=== PATIENT | female | born 1995 | race Caucasian/White ===

== ENCOUNTER 2018-10-23 15:45 | Emergency (ER) | payer MEDICAID, SELFPAY ==
[2018-10-23 15:50] VITALS: BP 146/69; PULSE 99; TEMP 37.4; O2SAT 97
--- NOTE | 2018-10-23 16:08 | NUR.NOTE ---
Nursing Note: MD Bañuelos is at the bedside.
--- NOTE | 2018-10-23 16:19 | W.ED.GENAD ---
Discharge Plan Disposition Patient Disposition: [facility] Condition: Serious Discharge Details Chief Complaint: Chest Pain Clinical Impression: Chest pain, Tachycardia Primary Care Provider: None,None ED Provider: Riccardo Bañuelos Home Meds and New Rx's Prescriptions: No Action No Known Home Meds RF: 0 Discharge Data Discharge Date/Time-TO BE ENTERED AT DEPARTURE: 10/23/18 19:56 Medical Decision Making 16:25 -- 23yo f with morbid obesity here with chest pain intermittent over the past 2 days. Patient is tachycardic. No respiratory distress. ECG reviewed and interpreted by me: sinus tachycardia 106, nl axis, short [place] 116. Moderate wells criteria. Concern for PE vs less likely ACS. Consider PTX. Plan for CT chest. Unfortunately, patient is over weight limitation of CT at [facility]. Will obtain initial labs including troponin and cxr. Plan for transfer to center that has CT capability for her weight. 17:15 -- cxr interpreted by radiology: No acute findings. No pneumothorax. Labs reviewed and initial troponin negative. I called [facility] transfer center to request emergent ED to ED transfer. Awaiting return call. 17:21 -- I was informed by staff that [facility] may have CT able to accomadate patient's weight. I called [facility] and spoke to production technologist who notes CT capable of 550lbs. Spoke with Dr. Neves to request transfer ED to ED. He will return call. 17:53 -- Spoke with Dr. Welch at [facility] - unable to accept patient as no inpatient beds available. 17:58 -- Spoke with Dr. Roach at [facility] who is looking into hospital capability and will call back. 18:05 -- Spoke with Dr. Roach who was agreeable to accepting patient but was informed by phosphoric acid supervisor that they could not accept transfer. Plan to transfer to [facility]. Call to [facility] transfer center to request ED to ED transfer. Awaiting return call. Patient reassessed and remains tachycardic. BP normal. Saturating well and no respiratory distress. 18:20 -- Spoke with Dr. Zepeda, [facility] ED, who will not accept the patient in ED to ED transfer because of lacking inpatient bed capability. continuous improvement director of transfer center was requested and not immediately available. Awaiting call back. 18:35 -- Call to [facility] transfer center to request transfer. Patient accepted by Dr. Connelly. Patient consented to transfer and appreciative of care. HPI General Mode of arrival: ambulatory. Date/Time Provider Initiated Documentation: 10/23/18 16:04. Limitations to Documentation: no limitations. Information obtained by: patient. HPI Narrative: 23yo f presents today with chief complaint of chest pain. Patient states that she has experienced intermittent chest discomfort over the past 2 days. Pain is localized to anterior upper chest and left shoulder. Also notes come intermittent sharp left lateral rib pain. Painful episodes occur about 2x per hour and last a few minutes. No modifiers. Occur at rest. Pain is mild in severity. No associated shortness or breath. No palpitations. No calf pain. No syncope or dizziness. No recent immobuility, traval or surgery. No history of cardiac disease or blood clots. Patient is obese. Related Data Home Medications Medication Instructions Recorded Confirmed Unknown [No Known Home Meds] 06/01/14 06/01/14 Allergies Allergy/AdvReac Type Severity Reaction Status Date / Time No Known Allergies Allergy Unverified 06/01/14 22:41 General Stated Complaint: Chest Pain LILIANA: 2 Review of Systems Review of Systems All systems reviewed & are unremarkable except as noted in HPI and below Cardiovascular Reports as per HPI Respiratory Reports as per HPI and Denies cough Gastrointestinal Denies abdominal pain PFSH Medical History Asthma (Chronic) Social History Smoking/Tobacco Use Status: Never Exam Const General: cooperative and no acute distress Nutritional Appearance: obese Orientation: alert and awake HENMT Head: normocephalic and atraumatic Mouth: moist mucous membranes Eyes Conjunctivae: normal conjunctivae Sclera: normal sclerae EOM: EOM intact bilaterally Neck Neck: trachea midline and supple Resp Auscultation: clear to auscultation bilaterally, no rales, no rhonchi and no wheezes Cardio Jugular venous pressure: no JVD Rate: tachycardic Rhythm: regular rhythm Heart Sounds: no murmurs GI Palpation: soft, not firm, no guarding, no masses, not rigid and nontender Skin General skin exam: no rashes or lesions noted Neuro General: alert, awake, oriented x3 and tone normal Extrem General: no edema Psych Appearance: grossly normal Mental Status: mental status grossly normal Speech and Movement: speech and movement normal Course Vital Signs Temperature 37.4 C 10/23/18 15:50 Pulse 99 H 01/14/19 15:50 Blood Pressure 146/69 H 10/23/18 15:50 Pulse Oximetry 97 10/23/18 15:50 Temperature 37.4 C 10/23/18 15:50 Temperature Source Skin 10/23/18 15:50 Pulse 99 H 10/23/18 15:50 Blood Pressure 146/69 H 10/23/18 15:50 Blood Pressure Position Supine 10/23/18 15:50 Pulse Oximetry 97 10/23/18 15:50 Oxygen Delivery Method Room Air 10/23/18 15:50 Oxygen Flow Rate 0 10/23/18 15:50 Pain Level 3 10/23/18 15:50
--- NOTE | 2018-10-23 16:27 | ED.GENADUL_ITS ---
Discharge Plan Disposition Patient Disposition: [facility] Condition: Serious Discharge Details Chief Complaint: Chest Pain Clinical Impression: Chest pain, Tachycardia Primary Care Provider: None,None ED Provider: Riccardo Bañuelos Home Meds and New Rx's Prescriptions: No Action No Known Home Meds RF: 0 Discharge Data Discharge Date/Time-TO BE ENTERED AT DEPARTURE: 10/23/18 19:56 Medical Decision Making 16:25 -- 23yo f with morbid obesity here with chest pain intermittent over the past 2 days. Patient is tachycardic. No respiratory distress. ECG reviewed and interpreted by me: sinus tachycardia 106, nl axis, short [place] 116. Moderate wells criteria. Concern for PE vs less likely ACS. Consider PTX. Plan for CT chest. Unfortunately, patient is over weight limitation of CT at [facility]. Will obtain initial labs including troponin and cxr. Plan for transfer to center that has CT capability for her weight. 17:15 -- cxr interpreted by radiology: No acute findings. No pneumothorax. Labs reviewed and initial troponin negative. I called [facility] transfer center to request emergent ED to ED transfer. Awaiting return call. 17:21 -- I was informed by staff that [facility] may have CT able to accomadate patient's weight. I called [facility] and spoke to mechatronics technologist who notes CT capable of [address]. Spoke with Dr. Neves to request transfer ED to ED. He will return call. 17:53 -- Spoke with Dr. Welch at [facility] - unable to accept patient as no inpatient beds available. 17:58 -- Spoke with Dr. Roach at [facility] who is looking into hospital capability and will call back. 18:05 -- Spoke with Dr. Roach who was agreeable to accepting patient but was informed by electrical tests supervisor that they could not accept transfer. Plan to transfer to [facility]. Call to [facility] transfer center to request ED to ED transfer. Awaiting return call. Patient reassessed and remains tachycardic. BP normal. Saturating well and no respiratory distress. 18:20 -- Spoke with Dr. Zepeda, [facility] ED, who will not accept the patient in ED to ED transfer because of lacking inpatient bed capability. director of mobile marketing of transfer center was requested and not immediately available. Awaiting call back. 18:35 -- Call to [facility] transfer center to request transfer. Patient accepted by Dr. Connelly. Patient consented to transfer and appreciative of care. HPI General Mode of arrival: ambulatory . Date/Time Provider Initiated Documentation: 10/23/18 16:04 . Limitations to Documentation: no limitations . Information obtained by: patient . HPI Narrative: 23yo f presents today with chief complaint of chest pain. Patient states that she has experienced intermittent chest discomfort over the past 2 days. Pain is localized to anterior upper chest and left shoulder. Also notes come intermittent sharp left lateral rib pain. Painful episodes occur about 2x per hour and last a few minutes. No modifiers. Occur at rest. Pain is mild in severity. No associated shortness or breath. No palpitations. No calf pain. No syncope or dizziness. No recent immobuility, traval or surgery. No history of cardiac disease or blood clots. Patient is obese. Related Data Home Medications Medication Instructions Recorded Confirmed Unknown [No Known Home Meds] 06/01/14 06/01/14 Allergies Allergy/AdvReac Type Severity Reaction Status Date / Time No Known Allergies Allergy Unverified 06/01/14 22:41 General Stated Complaint: Chest Pain LILIANA: 2 Review of Systems Review of Systems All systems reviewed & are unremarkable except as noted in HPI and below Cardiovascular Reports as per HPI Respiratory Reports as per HPI and Denies cough Gastrointestinal Denies abdominal pain PFSH Medical History Asthma (Chronic) Social History Smoking/Tobacco Use Status: Never Exam Const General: cooperative and no acute distress Nutritional Appearance: obese Orientation: alert and awake HENMT Head: normocephalic and atraumatic Mouth: moist mucous membranes Eyes Conjunctivae: normal conjunctivae Sclera: normal sclerae EOM: EOM intact bilaterally Neck Neck: trachea midline and supple Resp Auscultation: clear to auscultation bilaterally, no rales, no rhonchi and no wheezes Cardio Jugular venous pressure: no JVD Rate: tachycardic Rhythm: regular rhythm Heart Sounds: no murmurs GI Palpation: soft, not firm, no guarding, no masses, not rigid and nontender Skin General skin exam: no rashes or lesions noted Neuro General: alert, awake, oriented x3 and tone normal Extrem General: no edema Psych Appearance: grossly normal Mental Status: mental status grossly normal Speech and Movement: speech and movement normal Course Vital Signs Temperature 37.4 C 10/23/18 15:50 Pulse 99 H 01/14/19 15:50 Blood Pressure 146/69 H 10/23/18 15:50 Pulse Oximetry 97 10/23/18 15:50 Temperature 37.4 C 10/23/18 15:50 Temperature Source Skin 10/23/18 15:50 Pulse 99 H 10/23/18 15:50 Blood Pressure 146/69 H 10/23/18 15:50 Blood Pressure Position Supine 10/23/18 15:50 Pulse Oximetry 97 10/23/18 15:50 Oxygen Delivery Method Room Air 10/23/18 15:50 Oxygen Flow Rate 0 10/23/18 15:50 Pain Level 3 10/23/18 15:50
--- NOTE | 2018-10-23 16:27 | DI.RAD_ITS ---
SYMPTOM/DIAGNOSIS: CHEST PAIN PORTABLE AP CHEST: Comparison is made with 12/26/08. The exam is limited by the patient's body habitus. The heart size is within normal limits for projection. The lungs are grossly clear. IMPRESSION: Negative portable chest.
[2018-10-23 16:37] LABS: Abs Immature Grans 0.05 k/cumm (0.0-0.09); Absolute Basophil Count 0.02 k/cumm (0.0-0.2); Absolute Eosinophil Count 0.26 k/cumm (0.0-0.7); Absolute Lymphocyte Count 2.17 k/cumm (1.2-3.4); Absolute Monocyte Count 0.55 k/cumm (0.11-0.7); Absolute Neutrophil Count 7.75 k/cumm (1.2-6.7); Basophils % 0.2; Eosinophils % 2.4; HCT 42.9 % (36.0-46.0); HGB 13.6 g/dL (12.0-15.5); Immature Grans % 0.5; Lymphocytes % 20.1; Mean Corp. HGB Concentration 31.7 g/dL (32.0-36.0); Mean Corpuscular Hemoglobin 25.7 pg (27.0-33.0); Mean Corpuscular Volume 80.9 fL (80-95); Mean Platelet Volume 10.3 fL (8.0-11.0); Monocytes % 5.1; Neutrophils % 71.7; Platelet Count 335 x1000/uL (130-400); RBC Distribution Width 15.9 % (11.7-14.6)
[2018-10-23 16:53] LABS: ALT 21 U/L (12-78); AST 15 U/L (15-37); Albumin 3.4 g/dL (3.4-5.0); Alkaline Phosphatase 65 U/L (46-116); BUN 12 mg/dL (7-18); Bilirubin, Total 0.5 mg/dL (0.2-1.0); CREATININE 0.83 mg/dL (0.55-1.02); Calcium 9.3 mg/dL (8.5-10.1); Chloride 101 mmol/L (98-107); Glucose 93 mg/dL (70-100); Magnesium 1.9 mg/dL (1.8-2.4); Potassium 3.8 mmol/L (3.5-5.1); Sodium 137 mmol/L (136-145); Total Protein 8.2 g/dL (6.4-8.2)
[2018-10-23 17:00] LABS: Troponin I < 0.02 ng/mL (0.00-0.06)
--- NOTE | 2018-10-23 17:06 | DI.VRAD_ITS ---
EXAM: XR Chest, 1 View EXAM DATE/TIME: 10/23/2018 4:28 PM CLINICAL HISTORY: 23 years old, female; Pain; Chest pain; Left-sided chest pain; Patient HX: Chest pain left, 2 days, tachy TECHNIQUE: XR of the chest, 1 view. COMPARISON: No relevant prior studies available. FINDINGS: Lungs: Unremarkable. No consolidation. Pleural space: Unremarkable. No pleural effusion. No pneumothorax. Heart/Mediastinum: Unremarkable. No cardiomegaly. Bones/joints: Unremarkable. IMPRESSION: No acute findings. Dictated and Authenticated by: Nicolas Davison MD. Ordering:OFELIA Gu MD
[2018-10-23 17:51] VITALS: PULSE 98; RESP 18; O2SAT 99
[2018-10-23 18:00] VITALS: BP 169/94; PULSE 101; PULSE 97; RESP 24; O2SAT 98
[2018-10-23 18:01] VITALS: PULSE 103; RESP 16; O2SAT 98
[2018-10-23 18:10] VITALS: PULSE 105; RESP 17; O2SAT 96
--- NOTE | 2018-10-23 18:49 | NUR.NOTE ---
Nursing Note: Pt. is calm, in NAD, awaiting updated plan.
--- NOTE | 2018-10-23 19:01 | NUR.NOTE ---
Nursing Note: Report given to DONNA Rocha at [facility].
[2018-10-23] MEDS: Normal Saline 1,000 ML 125 ML IV (20:45)
[2018-10-24 02:48] VITALS: BP 169/94; PULSE 97; RESP 17; TEMP 37.4; O2SAT 96
--- NOTE | 2018-10-24 08:32 | PDOC.ERCMPRO ---
Care Management Progress Note 10/24-Dr. Taniya Bañuelos requested assistance with a PCP (patient does not have PCP, Dr. Call station engineer main line) f/u within one week. Referral faxed to [facility] this am.
--- NOTE | 2018-10-24 08:33 | CMPROGNOTE_ITS ---
Care Management Progress Note 10/24-Dr. Taniya Bañuelos requested assistance with a PCP (patient does not have PCP, Dr. Call oncology admin) f/u within one week. Referral faxed to [facility] this am.
== END 2018-10-23 19:56 ==
PROVIDERS: Emergency Provider Student in an Organized Health Care Education/Training Program
DX: R07.9 Chest pain, unspecified (principal); R00.0 Tachycardia, unspecified; E66.01 Morbid (severe) obesity due to excess calories; Z68.45 Body mass index [BMI] 70 or greater, adult
CPT/HCPCS: 36415; 80053; 81025; 93005; 96360; 96361; 99285; 71045; 83735; 84484; 85025; 93010

== ENCOUNTER 2019-04-03 15:12 | Emergency (ER) | payer MEDICAID, SELFPAY ==
--- NOTE | 2019-04-03 15:28 | NUR.NOTE ---
Nursing Note: pt states that she developed a sore throat 2 days ago. pt has had strep several times in the past and states that symptoms are similar
[2019-04-03 15:29] VITALS: BP 152/78; PULSE 128; RESP 17; TEMP 37.6; O2SAT 97
--- NOTE | 2019-04-03 15:31 | W.ED.GENAD ---
Discharge Plan Disposition Patient Disposition: HOME Condition: Stable Discharge Details Chief Complaint: Sorethroat Clinical Impression: Acute tonsillitis Primary Care Provider: Charlie Thompson ED Provider: Scotty Yusuf Home Meds and New Rx's Prescriptions: Continued ProAir HFA 90 mcg/actuation HFA aerosol inhaler 1 puff IH Q6H PRNRF: 0 diphenhydramine HCl [Allergy (diphenhydramine)] 25 mg capsule 25 mg PO Q4H PRNRF: 0 Discharge Instructions Instructions: Pharyngitis (ED) Additional Instructions: Your rapid strep test is negative but we will send it for strep culture for further testing. Continue to use [id number]-[id number] medications such as Tylenol, Motrin, and stay well-hydrated. Return to the emergency department for any new or significant worsening of symptoms otherwise follow-up with your primary care provider for reassessment if not improving over the next. Referrals: Charlie Thompson [Primary Care Provider] - (If not improving over the next week) Discharge Data Discharge Date/Time-TO BE ENTERED AT DEPARTURE: 04/03/19 16:08 Medical Decision Making Patient presenting to the emergency department chief complaint of sore throat. Patient states that she has had intermittent fever the for the past 2 days along with a sore throat that started at the same time. She does state history of strep throat with similar presentation. Patient denies any nasal congestion, cough, rash, abdominal pain nausea vomiting. Physical exam shows tonsillary hypertrophy, erythema, and exudates along with some anterior cervical lymphadenopathy, otherwise HEENT cardiac and respiratory exam are unremarkable. Plan to do rapid strep testing for consideration of streptococcal illness. Rapid strep testing is negative. Patient was educated on conservative management of her symptoms along with return precautions. Strep culture was ordered. Patient to follow-up with primary care provider if not improving in the next week. HPI General Mode of arrival: ambulatory. Date/Time Provider Initiated Documentation: 04/03/19 15:31. Limitations to Documentation: no limitations. Information obtained by: patient. History of Present Illness 23 year old F presents to the emergency department with the chief complaint of Sore throat, described as moderate, with intensity rated at 7. Quality is described as aching, and is localized to the mouth (Sore throat). Patient started experiencing this day(s) (2) and it has been constant. No relieving factors improve symptom(s), No exacerbating factors reported . Patient notes no other symptoms.. Patient did receive the following treatments prior to arrival, NSAID Related Data Home Medications Medication Instructions Recorded Confirmed albuterol sulfate HFA 90 1 puff IH Q6H PRN 11/01/18 11/01/18 mcg/actuation aerosol inhaler diphenhydramine 25 mg capsule 25 mg PO Q4H PRN 11/01/18 11/01/18 Allergies Allergy/AdvReac Type Severity Reaction Status Date / Time No Known Allergies Allergy Unverified 11/01/18 13:18 General LILIANA: 2 Review of Systems Constitutional Denies chills, Reports fever(s), Denies headache(s) and Reports malaise ENT Denies dysphagia, Denies otalgia, Denies headache(s), Denies hoarseness, Denies lip swelling, Denies nasal congestion, Reports odynophagia and Reports sore throat Cardiovascular Denies chest pain Respiratory Denies chest congestion and Denies cough Gastrointestinal Denies abdominal pain, Denies dysphagia, Denies nausea, Reports odynophagia and Denies vomiting Integumentary/Breasts Denies rash Neurologic Denies headache(s) Allergic/Immunologic Denies lip swelling [facility] Medical History Asthma (Chronic) Family History Mother Alcohol abuse Asthma Depression Father Alcohol abuse Brother Depression Cancer Brother Alcohol abuse Maternal Grandfather Alcohol abuse Bladder cancer Paternal Grandfather No problems noted. Maternal Grandmother Alcohol abuse Depression Lung cancer Paternal Grandmother No problems noted. Social History Smoking/Tobacco Use Status: Never Alcohol Intake: current Alcohol Intake frequency: a few times a month Alcohol type: beer and hard liquor Drug use: Never Substance use type: does not use Caregiver/Support person: No Household members: family Housing: apartment Pets and animals: Yes Pets and animals: cat(s) Sexually active: No Do you think of yourself as: straight/heterosexual Current gender identity: female Frequency: does not exercise Parvin/Anabaptism: Taoist Special parvin needs: No Seatbelt use: always Helmet use: Yes Do you feel safe at home: Yes Do you feel safe in your relationship?: Yes Exam Const General: cooperative, healthy appearing, comfortable, no acute distress and not ill appearing Orientation: alert, awake and oriented x3 HENMT Head: normal to inspection and normocephalic Ears: hearing grossly normal bilaterally, external ears normal, TM's normal bilaterally and mastoids normal General nose exam: external nose normal and nares normal Mouth: oral mucosae normal, lip normal, tongue normal, no audible dysphonia, no drooling and no trismus Throat: uvula midline and abnormal tonsil bilaterally erythema, exudates and hypertrophy 2+ Neck Neck: normal visual inspection, full ROM, no meningeal signs and lymphadenopathy (Anterior cervical) Resp Effort & Inspection: normal respiratory effort, able to speak in complete sentences and no stridor Auscultation: clear to auscultation bilaterally Cardio Rate: regular rate Rhythm: regular rhythm Heart Sounds: S1 normal and S2 normal Skin General skin exam: no rashes or lesions noted
--- NOTE | 2019-04-03 15:35 | ED.GENADUL_ITS ---
Discharge Plan Disposition Patient Disposition: HOME Condition: Stable Discharge Details Chief Complaint: Sorethroat Clinical Impression: Acute tonsillitis Primary Care Provider: Charlie Thompson ED Provider: Scotty Yusuf Home Meds and New Rx's Prescriptions: Continued ProAir HFA 90 mcg/actuation HFA aerosol inhaler 1 puff IH Q6H PRNRF: 0 diphenhydramine HCl [Allergy (diphenhydramine)] 25 mg capsule 25 mg PO Q4H PRNRF: 0 Discharge Instructions Instructions: Pharyngitis (ED) Additional Instructions: Your rapid strep test is negative but we will send it for strep culture for further testing. Continue to use ekcl-aqu-zyteanb medications such as Tylenol, Motrin, and stay well-hydrated. Return to the emergency department for any new or significant worsening of symptoms otherwise follow-up with your primary care provider for reassessment if not improving over the next. Referrals: Charlie Thompson [Primary Care Provider] - (If not improving over the next week) Discharge Data Discharge Date/Time-TO BE ENTERED AT DEPARTURE: 04/03/19 16:08 Medical Decision Making Patient presenting to the emergency department chief complaint of sore throat. Patient states that she has had intermittent fever the for the past 2 days along with a sore throat that started at the same time. She does state history of strep throat with similar presentation. Patient denies any nasal congestion, cough, rash, abdominal pain nausea vomiting. Physical exam shows tonsillary hypertrophy, erythema, and exudates along with some anterior cervical lymphadenopathy, otherwise HEENT cardiac and respiratory exam are unremarkable. Plan to do rapid strep testing for consideration of streptococcal illness. Rapid strep testing is negative. Patient was educated on conservative management of her symptoms along with return precautions. Strep culture was ordered. Patient to follow-up with primary care provider if not improving in the next week. HPI General Mode of arrival: ambulatory . Date/Time Provider Initiated Documentation: 04/03/19 15:31 . Limitations to Documentation: no limitations . Information obtained by: patient . History of Present Illness 23 year old F presents to the emergency department with the chief complaint of Sore throat, described as moderate, with intensity rated at 7. Quality is described as aching, and is localized to the mouth (Sore throat). Patient started experiencing this day(s) (2) and it has been constant. No relieving factors improve symptom(s), No exacerbating factors reported . Patient notes no other symptoms.. Patient did receive the following treatments prior to arrival, NSAID Related Data Home Medications Medication Instructions Recorded Confirmed albuterol sulfate HFA 90 1 puff IH Q6H PRN 11/01/18 11/01/18 mcg/actuation aerosol inhaler diphenhydramine 25 mg capsule 25 mg PO Q4H PRN 11/01/18 11/01/18 Allergies Allergy/AdvReac Type Severity Reaction Status Date / Time No Known Allergies Allergy Unverified 11/01/18 13:18 General LILIANA: 2 Review of Systems Constitutional Denies chills, Reports fever(s), Denies headache(s) and Reports malaise ENT Denies dysphagia, Denies otalgia, Denies headache(s), Denies hoarseness, Denies lip swelling, Denies nasal congestion, Reports odynophagia and Reports sore throat Cardiovascular Denies chest pain Respiratory Denies chest congestion and Denies cough Gastrointestinal Denies abdominal pain, Denies dysphagia, Denies nausea, Reports odynophagia and Denies vomiting Integumentary/Breasts Denies rash Neurologic Denies headache(s) Allergic/Immunologic Denies lip swelling [facility] Medical History Asthma (Chronic) Family History Mother Alcohol abuse Asthma Depression Father Alcohol abuse Brother Depression Cancer Brother Alcohol abuse Maternal Grandfather Alcohol abuse Bladder cancer Paternal Grandfather No problems noted. Maternal Grandmother Alcohol abuse Depression Lung cancer Paternal Grandmother No problems noted. Social History Smoking/Tobacco Use Status: Never Alcohol Intake: current Alcohol Intake frequency: a few times a month Alcohol type: beer and hard liquor Drug use: Never Substance use type: does not use Caregiver/Support person: No Household members: family Housing: apartment Pets and animals: Yes Pets and animals: cat(s) Sexually active: No Do you think of yourself as: straight/heterosexual Current gender identity: female Frequency: does not exercise Parvin/Yarsani: [employer] Special parvin needs: No Seatbelt use: always Helmet use: Yes Do you feel safe at home: Yes Do you feel safe in your relationship?: Yes Exam Const General: cooperative, healthy appearing, comfortable, no acute distress and not ill appearing Orientation: alert, awake and oriented x3 HENMT Head: normal to inspection and normocephalic Ears: hearing grossly normal bilaterally, external ears normal, TM's normal bilaterally and mastoids normal General nose exam: external nose normal and nares normal Mouth: oral mucosae normal, lip normal, tongue normal, no audible dysphonia, no drooling and no trismus Throat: uvula midline and abnormal tonsil bilaterally erythema, exudates and hypertrophy 2+ Neck Neck: normal visual inspection, full ROM, no meningeal signs and lymphadenopathy (Anterior cervical) Resp Effort & Inspection: normal respiratory effort, able to speak in complete sentences and no stridor Auscultation: clear to auscultation bilaterally Cardio Rate: regular rate Rhythm: regular rhythm Heart Sounds: S1 normal and S2 normal Skin General skin exam: no rashes or lesions noted
[2019-04-03 16:06] VITALS: BP 152/78; PULSE 128; RESP 17; TEMP 37.6; O2SAT 97
== END 2019-04-03 16:08 | disposition home or self-care (01) ==
PROVIDERS: Emergency Provider Nurse Practitioner Family; PCP Family Medicine
DX: J03.00 Acute streptococcal tonsillitis, unspecified (principal)
CPT/HCPCS: 87880; 99282; 87081

== ENCOUNTER 2025-05-24 17:19 | Outpatient (REF) | payer MEDICAID, SELFPAY ==
[2025-05-24 21:12] LABS: Abs Immature Grans 0.09 10^3/uL (0.0-0.06); HCT 45.1 % (36.0-46.0); HGB 14.2 g/dL (11.2-15.7); Immature Grans % 0.8 %; MCH 25.7 pg (27.0-33.0); MCHC 31.5 % (32.0-36.0); MCV 82 fL (80-95); MPV 10.7 fL (8.0-11.0); Platelet Count 317 10^3/uL (130-400); RBC 5.53 10^6/uL (3.93-5.22); RDW 15.9 % (11.7-14.6); RDW-SD 47.1 fL; WBC 11.66 10^3/uL (4.4-10.8)
[2025-05-24 21:33] LABS: ALT 21 U/L (14-59); AST 12 U/L (15-37); Albumin 3.4 g/dL (3.4-5.0); Alkaline Phosphatase 70 U/L (46-116); Anion Gap 10.3 mmol/L (3-11); BUN 13 mg/dL (7-18); Bilirubin, Total 0.4 mg/dL (0.2-1.0); CO2 26.7 mmol/L (21.0-32.0); Calcium 8.6 mg/dL (8.5-10.1); Calculated LDL 101 mg/dL (<100); Chloride 103 mmol/L (98-107); Cholesterol 170 mg/dL (<200); Estimated GFR 119.24 (mL/min/1.73m2); Glucose 94 mg/dL (74-106); HDL Cholesterol 51 mg/dL (>or=50); Potassium 4.1 mmol/L (3.5-5.1); Sodium 140 mmol/L (136-145); TSH (W/Ref FT4) 14.36 uIU/mL (0.36-3.74); Total Protein 7.5 g/dL (6.4-8.2); Triglyceride 91 mg/dL (<150)
[2025-05-24 21:38] LABS: Hemoglobin A1C 5.6 % (<5.7)
[2025-05-26 10:17] LABS: Hepatitis C Ab w Rflx HCV PCR Negative (Negative)
[2025-05-26 10:23] LABS: HIV-1/2 Ag & Ab Screen Negative (Negative)
[2025-05-27 09:51] LABS: HBs Antibody, Quant 7.7 mIU/mL (See Note); Hepatitis B Surface Antigen Negative (Negative)
[2025-05-27 11:53] LABS: Lab Add On Test DONE
== END 2025-05-24 17:20 | disposition home or self-care (01) ==
LOC: LBN 17:19
PROVIDERS: PCP Nurse Practitioner Family; Visit Provider Nurse Practitioner Family
DX: Z00.00 Encounter for general adult medical examination without abnormal findings (principal); E66.9 Obesity, unspecified; Z11.4 Encounter for screening for human immunodeficiency virus [HIV]; Z11.59 Encounter for screening for other viral diseases; R79.89 Other specified abnormal findings of blood chemistry
CPT/HCPCS: 80053; 80061; 86376; 86704; 86706; 86803; 87340; 87389; 83036; 84439; 84443; 85025